=== PATIENT | female | born 1990 | race African-American/Black ===

== ENCOUNTER 2022-04-06 10:17 | Emergency (ER) | payer BC ==
[2022-04-06 10:25] VITALS: BP 136/87; PULSE 75; TEMP 97.7; BMI 20.1
[2022-04-06 11:45] LABS: BASO % 0.9 % (0-2.0); EOS % 0.5 % (0-4.5); HEMATOCRIT 31.6 % (32.4-45.2); HEMOGLOBIN 10.1 GM/dL (10.7-15.3); LYMPH % 35.6 % (8-40); MCH 22.7 pg (25.7-33.7); MCHC 31.9 g/dl (32.0-36.0); MEAN CELL VOLUME 71.2 fl (80-96); MEAN PLT VOLUME 10.4 fl (7.5-11.1); MONO % 5.4 % (3.8-10.2); NEUT % 57.6 % (42.8-82.8); PLATELET COUNT 197 10^3/uL (134-434); RBC 4.45 M/mm3 (3.60-5.2); RDW 19.2 % (11.6-15.6)
[2022-04-06 12:25] LABS: BLOOD UREA NITROGEN 11.9 mg/dL (7-18); CALCIUM 9.1 mg/dL (8.5-10.1)
[2022-04-06 12:29] LABS: CREATININE 0.7 mg/dL (0.55-1.3)
[2022-04-06 15:15] LABS: EPI CELLS 3 /uL (0-25.1); HYALINE CASTS 0 /uL (0-3.1); PH,URINE 6.5 (5.0-8.0); URINE APPEARANCE CLEAR; URINE BACTERIA 43 /uL (0-1359); URINE BILIRUBIN NEGATIVE (NEGATIVE); URINE COLOR YELLOW; URINE GLUCOSE (UA) NEGATIVE (NEGATIVE); URINE KETONE NEGATIVE (NEGATIVE); URINE LEUK ESTERASE NEGATIVE (NEGATIVE); URINE NITRITE NEGATIVE (NEGATIVE); URINE PROTEIN NEGATIVE (NEGATIVE); URINE RBC 1 /uL (0-23.9); URINE UROBILINOGEN 0.2 mg/dL (0.2-1.0); URINE WBC 1 /uL (0-25.8)
== END 2022-04-06 12:55 | disposition home or self-care (01) ==
LOC: JER 10:17
DX: N93.9 Abnormal uterine and vaginal bleeding, unspecified (principal)
CPT/HCPCS: 36415; 80048; 81003; 84702; 85025; 86850; 86900; 86901; 87077; 87086; 99283-25